=== PATIENT | female | born 1950 | race Two or more races ===

== ENCOUNTER 2016-06-11 18:40 | Emergency (ER) | payer MEDICARE, MEDICAID ==
[~2016-06-11] VITALS: Ht 165.1 cm; Wt 81.0 kg
[2016-06-11 19:18] LABS: HEMATOCRIT. 36.1 % (36.0-48.0); HEMOGLOBIN. 11.9 g/dL (12.0-16.0); MEAN CORPUSCULAR HEMOGLOBIN 28.3 pg (28.0-32.0); MEAN CORPUSCULAR VOLUME 85.8 fL (81.0-99.0); MEAN PLATELET VOLUME 8.9 fl (7.4-10.4); PLATELET 220 x1000/uL (130-400); RED BLOOD CELL COUNT 4.21 mill/uL (4.2-5.4); RED CELL DISTRIBUTION WIDTH 15.2 % (11.6-14.6); WHITE BLOOD COUNT 12.5 x1000/uL (4.5-11.0)
[2016-06-11 19:19] LABS: DIFFERENTIAL COMMENT 1
[2016-06-11 19:22] LABS: CHLORIDE 104 mEq/L (98-107); INDEX HEMOLYSI 1 (1-3); INDEX ICTERIC 1 (1-4); INDEX LIPEMIC 1 (1-3)
[2016-06-11 19:26] LABS: ALANINE AMINOTRANSFERASE 19 IU/L (13-61); ALBUMIN 3.7 g/dL (3.4-5.0); ANION GAP 14; CALCIUM 9.3 mg/dL (8.5-10.1); CARBON DIOXIDE 26 mEq/L (21-32); LIPASE 226 IU/L (73-393); UREA NITROGEN BLOOD 20 mg/dL (7-21)
[2016-06-11 19:27] LABS: eGFR 55 mL/min (>60)
[2016-06-11 19:38] LABS: PLATELET ESTIMATE NORMAL
[2016-06-11] MEDS ORDERED: SODIUM CHLORIDE 0.9% 1,000 ML IV ONE (20:21)
[2016-06-11] MEDS ORDERED: KETOROLAC 30MG/ML VIAL IV ONE (20:30)
[2016-06-11] MEDS ORDERED: ONDANSETRON HCL 4MG/2ML VIAL IV ONE (20:30)
[2016-06-11 21:38] LABS: CLARITY URINE CLEAR (CLEAR); COLOR URINE YELLOW (YELLOW); GLUCOSE URINE NEGATIVE (NEGATIVE); KETONES URINE NEGATIVE (NEGATIVE); LEUKOCYTE ESTERASE URINE NEGATIVE (NEGATIVE); NITRITE URINE NEGATIVE (NEGATIVE); OCCULT BLOOD URINE 1+ (NEGATIVE); PROTEIN URINE 2+ (NEGATIVE); SPECIFIC GRAVITY URINE 1.015 (1.005-1.030); UROBILINOGEN URINE 0.2 E.U./dL (0.2-1.0)
[2016-06-11 21:41] LABS: BACTERIA URINE NONE SEEN; CALCIUM PHOSPHATE CRYSTALS UR NONE SEEN /lpf; RBC URINE 0-2 /hpf (0-2); SQUAMOUS EPITHELIAL CELL URINE NONE SEEN /lpf (RARE/1+); WAXY CASTS URINE NONE SEEN /lpf; WBC URINE 0-2 /hpf (0-2); YEAST URINE NONE SEEN
[2016-06-11 23:00] VITALS: BP 123/66
== END 2016-06-11 23:18 | disposition home or self-care (01) ==
LOC: ER 22:33
DX: R19.7 Diarrhea, unspecified (principal); I10 Essential (primary) hypertension; R10.9 Unspecified abdominal pain; R11.10 Vomiting, unspecified
CPT/HCPCS: 36415; 80053; 81001; 83690; 85025; 85610; 96361; 96374; 96375; 99285; J1885; J2405; J7030

== ENCOUNTER 2016-09-24 18:54 | Emergency (ER) | payer MEDICARE, MEDICAID ==
[~2016-09-24] VITALS: Ht 162.6 cm; Wt 85.0 kg
[2016-09-24] MEDS ORDERED: SODIUM CHLORIDE 0.9% 1,000 ML IV ONE (19:06)
[2016-09-24] MEDS ORDERED: ONDANSETRON HCL 4MG/2ML VIAL IV STA (19:06)
[2016-09-24] MEDS ORDERED: MECLIZINE 25MG TABLET PO ONE (19:15)
[2016-09-24 19:46] LABS: PROTHROMBIN TIME 10.1 sec
[2016-09-24 19:49] LABS: EOSINOPHILS % 0.9 % (0.0-5.0); HEMOGLOBIN. 10.7 g/dL (12.0-16.0); LYMPHOCYTES % 31.1 % (20.0-50.0); MEAN CORPUSCULAR HEMOGLOBIN 29.6 pg (28.0-32.0); MEAN CORPUSCULAR VOLUME 88.4 fL (81.0-99.0); MEAN PLATELET VOLUME 8.8 fl (7.4-10.4); MONOCYTES % 7.2 % (2.0-8.0); NEUTROPHILS % 59.8 % (40.0-76.0); PLATELET 204 x1000/uL (130-400); RED BLOOD CELL COUNT 3.62 mill/uL (4.2-5.4); RED CELL DISTRIBUTION WIDTH 15.1 % (11.6-14.6)
[2016-09-24 19:53] LABS: CARBON DIOXIDE 26 mEq/L (21-32); CHLORIDE 104 mEq/L (98-107)
[2016-09-24 21:27] LABS: CLARITY URINE CLEAR (CLEAR); COLOR URINE YELLOW (YELLOW); GLUCOSE URINE NEGATIVE (NEGATIVE); KETONES URINE NEGATIVE (NEGATIVE); LEUKOCYTE ESTERASE URINE NEGATIVE (NEGATIVE); NITRITE URINE NEGATIVE (NEGATIVE); OCCULT BLOOD URINE TRACE (NEGATIVE); PROTEIN URINE NEGATIVE (NEGATIVE); SPECIFIC GRAVITY URINE 1.012 (1.005-1.030); UROBILINOGEN URINE 0.2 E.U./dL (0.2-1.0)
[2016-09-24 21:49] VITALS: BP 143/71
== END 2016-09-24 22:10 | disposition home or self-care (01) ==
LOC: ER 19:53
DX: R42 Dizziness and giddiness (principal); N28.9 Disorder of kidney and ureter, unspecified; I10 Essential (primary) hypertension; K21.9 Gastro-esophageal reflux disease without esophagitis
CPT/HCPCS: 36415; 70450; 80053; 81001; 85025; 85610; 93005; 96361; 96374; 99285; J2405; J7030; J8597

== ENCOUNTER 2017-06-25 19:42 | Emergency (ER) | payer MEDICARE, MEDICAID ==
[~2017-06-25] VITALS: Ht 157.5 cm; Wt 82.0 kg
[2017-06-25] MEDS ORDERED: KETOROLAC 60MG/2ML VIAL IM ONE (21:30)
[2017-06-25] MEDS ORDERED: ACETAMINOPHEN 325MG TABLET PO ONE (22:45)
[2017-06-25 22:59] VITALS: BP 126/69
== END 2017-06-26 00:24 | disposition home or self-care (01) ==
LOC: ER 19:42
DX: S30.0XXA Contusion of lower back and pelvis, initial encounter (principal); K21.9 Gastro-esophageal reflux disease without esophagitis; I10 Essential (primary) hypertension; W18.39XA Other fall on same level, initial encounter; Y93.89 Activity, other specified; Y92.89 Other specified places as the place of occurrence of the external cause; Y99.8 Other external cause status
CPT/HCPCS: 72100; 72220; 96372; 99284; J1885

== ENCOUNTER 2019-03-22 06:02 | Inpatient (IN) | payer MEDICARE, OTHER ==
[~2019-03-22] VITALS: Ht 157.5 cm; Wt 87.5 kg
[~2019-03-22 06:02] MED LIST: LACTATED RINGERS 1,000 ML IV SCH
[2019-03-22] MEDS ORDERED: FENTANYL CITRATE/PF 50MCG/ML 2ML VIAL ONE (07:16)
[2019-03-22] MEDS ORDERED: ROCURONIUM BROMIDE 10MG/ML VIAL 5ML IV ONE (07:17)
[2019-03-22] MEDS ORDERED: PROPOFOL 200MG/20ML VIAL IV ONE (07:17)
[2019-03-22] MEDS ORDERED: MIDAZOLAM HCL 2 MG/2 ML VIAL ONE (07:17)
[2019-03-22] MEDS ORDERED: SUCCINYLCHOLINE CHLORIDE 200MG/10ML IV ONE (07:17)
[2019-03-22] MEDS ORDERED: SKIN ADHESIVE 0.7 GM EA TOP ONE (07:20)
[2019-03-22] MEDS ORDERED: BUPIVACAINE HCL/EPINEPHRINE/PF 0.5%/0.0005 10ML ONE ×2 (07:20→07:50)
[2019-03-22] MEDS ORDERED: EPHEDRINE SULFATE 50MG/ML VIAL ONE (07:22)
[2019-03-22] MEDS ORDERED: PHENYLEPHRINE HCL 10 MG/ML 1ML (IV VIAL) IV ONE (07:22)
[2019-03-22] MEDS ORDERED: SODIUM CHLORIDE 0.9% 10ML VIAL ONE ×2 (07:22→09:05)
[2019-03-22] MEDS ORDERED: CEFAZOLIN SODIUM 1000MG/VIAL ONE ×2 (07:22→07:56)
[2019-03-22] MEDS ORDERED: MORPHINE SULFATE 2 MG/ML CPJ (NOT FOR IM USE) IV PRN ×2 (07:45→10:15)
[2019-03-22] MEDS ORDERED: ACETAMINOPHEN 325MG TABLET PO PRN (07:45)
[2019-03-22] MEDS ORDERED: HYDROCODONE/ACETAMINOPHEN 5/325MG TABLET PO PRN ×2 (07:45)
[2019-03-22] MEDS ORDERED: MORPHINE SULFATE 4 MG/ML CPJ (NOT FOR IM USE) IV PRN (07:45)
[2019-03-22] MEDS ORDERED: ESMOLOL HCL 10MG/ML 10ML VIAL IV ONE (07:46)
[2019-03-22] MEDS ORDERED: TERBUTALINE SULFATE 1MG/ML VIAL ONE (08:03)
[2019-03-22] MEDS ORDERED: DEXAMETHASONE 4MG/ML 1ML VIAL ONE (08:07)
[2019-03-22] MEDS ORDERED: HYDR12.54 PO (09:00)
[2019-03-22] MEDS ORDERED: LOSA100T32 PO (09:00)
[2019-03-22] MEDS ORDERED: AMLO10TA80 PO (09:00)
[2019-03-22] MEDS ORDERED: METOCLOPRAMIDE HCL 10MG/2ML VIAL ONE (09:03)
[2019-03-22] MEDS ORDERED: HYDRALAZINE 20MG/ML VIAL ONE (09:05)
[2019-03-22] MEDS: HYDROMORPHONE HCL/PF 2MG/ML CPJ IV PRN ×4 (09:43→10:29)
[2019-03-22] MEDS ORDERED: HYDROMORPHONE HCL/PF 2MG/ML CPJ ONE (09:43)
[2019-03-22] MEDS ORDERED: ALBU18HF2 IH (10:15)
[2019-03-22] MEDS ORDERED: MORPHINE SULFATE 2 MG/ML CPJ (NOT FOR IM USE) IV ONE (10:15)
[2019-03-22] MEDS ORDERED: OMEP20CA14 PO (10:15)
[2019-03-22] MEDS ORDERED: ALLO100T PO (10:15)
[2019-03-22] MEDS ORDERED: ATOR20TA65 PO (10:15)
[2019-03-22] MEDS ORDERED: MECL-159 PO (10:15)
[2019-03-22] MEDS ORDERED: BUSP10TA3 PO (10:15)
[2019-03-22] MEDS ORDERED: TRAM50TA3 PO (10:15)
[2019-03-22] MEDS: ONDANSETRON HCL 4MG/2ML INJ IV PRN (10:26)
[2019-03-22 12:15] VITALS: BP 112/61
[2019-03-22 12:32] VITALS: BP 112/61
[2019-03-22] MEDS: SODIUM CHLORIDE 0.9% INJ 3ML FLUSH IVF SCH ×2 (14:00→21:31)
[2019-03-22] MEDS: DEXT 5%/0.45% NACL KCL 20MEQ/L 1,000 ML IV SCH (15:14)
[2019-03-22 16:00] VITALS: BP 112/54
[2019-03-22 20:00] VITALS: BP 112/56
[2019-03-23] VITALS: BP 133/64
[2019-03-23 04:00] VITALS: BP 131/56
[2019-03-23] MEDS: SODIUM CHLORIDE 0.9% INJ 3ML FLUSH IVF SCH (05:30)
[2019-03-23] MEDS: DEXT 5%/0.45% NACL KCL 20MEQ/L 1,000 ML IV SCH ×2 (05:30→10:44)
[2019-03-23 08:00] VITALS: BP 158/85
[2019-03-23] MEDS: ONDANSETRON HCL 4MG/2ML INJ IV PRN (09:00)
[2019-03-23] MEDS ORDERED: IPRATROPIUM/ALBUTEROL 0.5-3(2.5)MG/3ML NEB HHN PRN (09:30)
[2019-03-23 12:00] VITALS: BP 131/67
[2019-03-23 12:04] VITALS: BP 131/67
== END 2019-03-23 12:34 | disposition home health service (06) | DRG 627 ==
LOC: OR 06:02 → 6EST 06:03
PROVIDERS: ADMIT Surgery; ATTEND Surgery
PROC: 0GBG0ZZ Excision of Left Thyroid Gland Lobe, Open Approach (ICD-10-PCS; principal; 2019-03-22)
DX: E04.2 Nontoxic multinodular goiter (principal); M19.90 Unspecified osteoarthritis, unspecified site; I10 Essential (primary) hypertension; K21.9 Gastro-esophageal reflux disease without esophagitis; E78.5 Hyperlipidemia, unspecified; I45.10 Unspecified right bundle-branch block; J39.8 Other specified diseases of upper respiratory tract; R53.82 Chronic fatigue, unspecified; Z82.3 Family history of stroke; Z82.49 Family history of ischemic heart disease and other diseases of the circulatory system; Z79.899 Other long term (current) drug therapy
CPT/HCPCS: 71045; 88309; 88329; J0171; J0330; J0360; J0690; J1100; J1170; J2250; J2270; J2370; J2405; J2704; J2765; J3010; J3105; J3490; J7620

== ENCOUNTER 2019-11-24 16:36 | Inpatient (IN) | payer MEDICARE, OTHER ==
[~2019-11-24] VITALS: Ht 152.4 cm; Wt 90.7 kg
[~2019-11-24 16:36] MED LIST changes: +ALBU18HF2 IH; +ALLO100T PO; +AMLO10TA80 PO; +ATOR20TA65 PO; +BUSP10TA3 PO; +HYDR12.54 PO; -LACTATED RINGERS 1,000 ML IV SCH; +LOSA100T32 PO; +MECL-159 PO; +OMEP20CA14 PO; +TRAM50TA3 PO
[2019-11-24 17:32] VITALS: BP 141/72
[2019-11-24] MEDS ORDERED: ONDANSETRON HCL 4MG/2ML INJ IV PRN (17:45)
[2019-11-24] MEDS ORDERED: ACETAMINOPHEN 325MG TABLET PO PRN (17:45)
[2019-11-24 17:50] VITALS: BP 154/74
[2019-11-24 17:53] VITALS: BP 141/72
[2019-11-24] MEDS ORDERED: ALBUTEROL 6.7GM HFA INHALER INH SCH (18:15)
[2019-11-24] MEDS ORDERED: MECLIZINE 25MG TABLET PO PRN (18:15)
[2019-11-24] MEDS ORDERED: ALBUTEROL (0.083%) 2.5MG/3ML NEB HHN PRN (18:45)
[2019-11-24 19:31] VITALS: BP 151/75
[2019-11-24] MEDS: ATORVASTATIN CALCIUM 20MG TABLET PO SCH (20:38)
[2019-11-24] MEDS: BUSPIRONE HCL 10MG TABLET PO SCH (20:38)
[2019-11-24] MEDS: LOSARTAN POTASSIUM 100 MG TABLET PO SCH (20:38)
[2019-11-24] MEDS: AMLODIPINE 10MG TABLET PO SCH (20:39)
[2019-11-24 20:59] LABS: BASOPHILS % 0.6 % (0.0-2.0); HEMATOCRIT. 30.6 % (36.0-48.0); LYMPHOCYTES % 28.1 % (20.0-50.0); MEAN CORPUSCULAR HEMOGLOBIN 29.4 pg (28.0-32.0); MEAN CORPUSCULAR VOLUME 89.9 fL (81.0-99.0); MONOCYTES % 7.2 % (2.0-8.0); NEUTROPHILS % 63.1 % (40.0-76.0); PLATELET 227 x1000/uL (130-400); RED CELL DISTRIBUTION WIDTH 15.1 % (11.6-14.6)
[2019-11-24 21:04] LABS: CHLORIDE 112 mEq/L (98-107)
[2019-11-24 21:31] VITALS: BP 142/73
[2019-11-24 23:31] VITALS: BP 134/67
[2019-11-25] VITALS (9 sets, daily range): BP systolic 126–153; BP diastolic 64–82
[2019-11-25] MEDS: TRAMADOL 50MG TABLET PO PRN ×2 (04:12→20:38)
[2019-11-25] MEDS: OMEPRAZOLE 20MG CAPSULE EXTENDED RELEASE PO SCH (06:23)
[2019-11-25] MEDS: ALLOPURINOL 100 MG TABLET PO SCH (08:53)
[2019-11-25] MEDS: LOSARTAN POTASSIUM 100 MG TABLET PO SCH (08:53)
[2019-11-25] MEDS: AMLODIPINE 10MG TABLET PO SCH (08:53)
[2019-11-25 10:11] LABS: BASOPHILS % 0.4 % (0.0-2.0); EOSINOPHILS % 0.9 % (0.0-5.0); HEMATOCRIT. 32.6 % (36.0-48.0); HEMOGLOBIN. 10.7 g/dL (12.0-16.0); LYMPHOCYTES % 28.6 % (20.0-50.0); MEAN CORPUSCULAR HEMOGLOBIN 29.6 pg (28.0-32.0); MEAN CORPUSCULAR VOLUME 90.3 fL (81.0-99.0); MEAN PLATELET VOLUME 8.6 fl (7.4-10.4); MONOCYTES % 7.4 % (2.0-8.0); NEUTROPHILS % 62.7 % (40.0-76.0); PLATELET 215 x1000/uL (130-400); RED BLOOD CELL COUNT 3.61 mill/uL (4.2-5.4); RED CELL DISTRIBUTION WIDTH 15.3 % (11.6-14.6)
[2019-11-25 10:21] LABS: PARTIAL THROMBOPLASTIN TIME 24.9 sec (23.4-31.0); PROTHROMBIN TIME 10.3 sec (9.6-11.0)
[2019-11-25] MEDS ORDERED: IOHEXOL-300 100 ML BOTTLE ONE (12:22)
[2019-11-25] MEDS ORDERED: GENTAMICIN SULF 40MG/ML 2ML VIAL ONE (12:25)
[2019-11-25] MEDS ORDERED: GENTAMICIN/NS IRRIGATION 500 ML IR ONE (12:26)
[2019-11-25] MEDS ORDERED: LIDOCAINE HCL 1% 20ML VIAL (Pyxis) INJ ONE (12:33)
[2019-11-25] MEDS ORDERED: CEFAZOLIN SODIUM 1000MG/VIAL ONE (12:34)
[2019-11-25] MEDS ORDERED: MIDAZOLAM HCL 5 MG/5 ML VIAL ONE (12:34)
[2019-11-25] MEDS ORDERED: PROPOFOL 200MG/20ML VIAL IV ONE (12:34)
[2019-11-25] MEDS ORDERED: SUCCINYLCHOLINE CHLORIDE 200MG/10ML IV ONE (12:34)
[2019-11-25] MEDS ORDERED: ONDANSETRON HCL 4MG/2ML INJ IV PRN (14:30)
[2019-11-25] MEDS ORDERED: MORPHINE SULFATE 2 MG/ML CPJ (NOT FOR IM USE) IV PRN (14:30)
[2019-11-25] MEDS ORDERED: HYDROMORPHONE HCL/PF 2MG/ML CPJ IV PRN (14:30)
[2019-11-25] MEDS ORDERED: SODIUM CHLORIDE 0.9% 1,000 ML IV ONE (14:30)
[2019-11-25] MEDS ORDERED: HYDROCODONE/ACETAMINOPHEN 5/325MG TABLET PO PRN (14:30)
[2019-11-25] MEDS: BUSPIRONE HCL 10MG TABLET PO SCH (20:35)
[2019-11-25] MEDS: SOTALOL HCL 80MG TABLET PO SCH (20:36)
[2019-11-25] MEDS: ATORVASTATIN CALCIUM 20MG TABLET PO SCH (20:36)
[2019-11-25] MEDS: CEFAZOLIN 1000MG PREMIX 50 ML IV SCH (20:41)
[2019-11-25] MEDS: SODIUM CHL 0.45% + KCL 20MEQ/L 1,000 ML IV SCH (20:41)
[2019-11-26] VITALS (10 sets, daily range): BP systolic 113–157; BP diastolic 54–78
[2019-11-26] MEDS: SODIUM CHL 0.45% + KCL 20MEQ/L 1,000 ML IV SCH (00:17)
[2019-11-26] MEDS: TRAMADOL 50MG TABLET PO PRN ×2 (03:41→09:04)
[2019-11-26] MEDS: CEFAZOLIN 1000MG PREMIX 50 ML IV SCH (04:58)
[2019-11-26] MEDS: OMEPRAZOLE 20MG CAPSULE EXTENDED RELEASE PO SCH (06:36)
[2019-11-26 07:26] LABS: CHLORIDE 110 mEq/L (98-107)
[2019-11-26 07:27] LABS: BASOPHILS % 0.3 % (0.0-2.0); EOSINOPHILS % 0.9 % (0.0-5.0); HEMATOCRIT. 27.9 % (36.0-48.0); HEMOGLOBIN. 9.1 g/dL (12.0-16.0); LYMPHOCYTES % 20.5 % (20.0-50.0); MEAN CORPUSCULAR HEMOGLOBIN 29.8 pg (28.0-32.0); MEAN CORPUSCULAR VOLUME 91.1 fL (81.0-99.0); MEAN PLATELET VOLUME 9.1 fl (7.4-10.4); NEUTROPHILS % 71.3 % (40.0-76.0); PLATELET 198 x1000/uL (130-400); RED BLOOD CELL COUNT 3.06 mill/uL (4.2-5.4); RED CELL DISTRIBUTION WIDTH 15.4 % (11.6-14.6)
[2019-11-26] MEDS: LOSARTAN POTASSIUM 100 MG TABLET PO SCH (09:03)
[2019-11-26] MEDS: ALLOPURINOL 100 MG TABLET PO SCH (09:03)
[2019-11-26] MEDS: SOTALOL HCL 80MG TABLET PO SCH (09:04)
[2019-11-26] MEDS: AMLODIPINE 10MG TABLET PO SCH (09:04)
== END 2019-11-26 15:07 | disposition home or self-care (01) | DRG 242 ==
LOC: 3WST 16:36
PROVIDERS: ADMIT Internal Medicine; ATTEND Internal Medicine
PROC: 0JH606Z Insertion of Pacemaker, Dual Chamber into Chest Subcutaneous Tissue and Fascia, Open Approach (ICD-10-PCS; principal; 2019-11-25)
PROC: 02H63JZ Insertion of Pacemaker Lead into Right Atrium, Percutaneous Approach (ICD-10-PCS; 2019-11-25)
PROC: 02HK3JZ Insertion of Pacemaker Lead into Right Ventricle, Percutaneous Approach (ICD-10-PCS; 2019-11-25)
PROC: B51NYZA Fluoroscopy of Left Upper Extremity Veins using Other Contrast, Guidance (ICD-10-PCS; 2019-11-25)
DX: I49.5 Sick sinus syndrome (principal); I50.31 Acute diastolic (congestive) heart failure; I48.92 Unspecified atrial flutter; I45.2 Bifascicular block; E44.1 Mild protein-calorie malnutrition; I48.91 Unspecified atrial fibrillation; I10 Essential (primary) hypertension; E66.9 Obesity, unspecified; M19.90 Unspecified osteoarthritis, unspecified site; E87.6 Hypokalemia; M48.02 Spinal stenosis, cervical region; D64.9 Anemia, unspecified; Z20.828 Contact with and (suspected) exposure to other viral communicable diseases; E87.8 Other disorders of electrolyte and fluid balance, not elsewhere classified; K21.9 Gastro-esophageal reflux disease without esophagitis; E78.5 Hyperlipidemia, unspecified; Z71.3 Dietary counseling and surveillance; Z68.39 Body mass index [BMI] 39.0-39.9, adult
CPT/HCPCS: 33208; 36415; 71045; 75820; 80048; 80053; 82962; 83735; 84443; 84484; 85025; 87426; 93005; 93306; 93970; C1785; C1893; C1898; J0330; J0690; J1580; J2250; J2704; J3480; J3490; Q9967

== ENCOUNTER → 2021-07-03 | Outpatient (CLI) | payer MEDICARE, MEDICAID | END | disposition home or self-care (01) | LOC: MRI 09:55 | PROVIDERS: ATTEND Neurological Surgery | DX: M48.07 Spinal stenosis, lumbosacral region (principal); M48.02 Spinal stenosis, cervical region | CPT/HCPCS: 72141; 72148 ==